=== PATIENT | female | born 1990 | race Caucasian/White ===

== ENCOUNTER 2016-08-20 16:11 | Emergency (ER) | payer OTHER ==
[2016-08-20] MEDS ORDERED: ACETAMINOPHEN 325 MG TAB As Ordered ONE (17:59)
[2016-08-20 18:26] LABS: BASO # 0.1 K/mm3 (0.0-0.2); BASO % 1.2 % (0.0-1.0); EOS # 0.2 K/mm3 (0.0-0.50); EOS % 1.6 % (0.0-3.0); LARGE UNSTAINED CELL # 0.2 K/mm3 (0.0-0.4); LARGE UNSTAINED CELL % 1.7 % (0.0-4.0); LYMPH # 4.3 K/mm3 (1.5-6.5); LYMPH % 39.9 % (24.0-44.0); MEAN CORPUSCULAR HEMOGLOBIN 30.5 pg (27.0-33.0); MEAN CORPUSCULAR VOLUME 89.7 fl (80.0-96.0); MONO # 0.5 K/mm3 (0.0-0.8); MONO % 4.5 % (0.0-5.0); NEUTROPHILS # 5.3 K/mm3 (1.8-7.7); PLATELET COUNT, AUTOMATED 364 k/mm3 (150-450); RED CELL DISTRIBUTION WIDTH 12.9 % (11.5-14.5); WHITE BLOOD COUNT 10.4 K/mm3 (4.0-10.0)
[2016-08-20 19:18] LABS: ANION GAP 10 MEQ/L (8-16); BLOOD UREA NITROGEN 12 MG/DL (7-18); CALCIUM LEVEL 9.5 MG/DL (8.5-10.1); CARBON DIOXIDE LEVEL 25 MEQ/L (21-32); CHLORIDE LEVEL 104 MEQ/L (98-107); CREATININE FOR GFR 0.77 MG/DL (0.55-1.02); GLOMERULAR FILTRATION RATE > 60.0 (>60); GLUCOSE, FASTING 93 MG/DL (70-105); HCG, SERUM QUANTITATIVE 14988 MIU/ML; POTASSIUM SERUM 3.9 MEQ/L (3.5-5.1); SODIUM LEVEL 139 MEQ/L (136-145)
--- NOTE | 2016-08-20 20:56 | EDDOCDS ---
Nurse's Notes [facility] Name: Leonardo Kiser Age: 26 yrs Sex: Female : 1990 Arrival Date: 08/20/2016 Time: 16:11 Bed I4 / M4 Private MD: HI Brice Diagnosis: Threatened Presentation: 08/20 16:15 Presenting complaint: Patient states: tomorrow she will be 6 weeks and about kcs 45 minutes ago - she started with heavy bleeding and cramping. Risk factors: The patient reports no loss of conciousness prior to arrival. This patient has not had a hysterectomy. This patient has not begun menopause. Adult Sepsis Screening: The patient does not have new or worsening altered mentation. Patient's respiratory rate is less than 22. Systolic blood pressure is greater than 100. Patient has a qSOFA score of 0- Negative Sepsis Screen. Suicide/Homicide risk assessment- the patient denies having any suicidal and/or homicidal ideations and does not present with any other emotional, behavioral or mental health complaints. Status: The patient is a dependent. Transition of care: patient was not received from another setting of care. 16:15 Acuity: MERCEDES Level 3 kcs 16:15 Method Of Arrival: Walkin/Carried/Asstd kcs 16:21 Presenting complaint: had 2 embryos transferred and only saw one on the last u/s. kcs Triage Assessment: 16:19 General: Appears uncomfortable, well developed, well nourished, well groomed, Behavior kcs is cooperative, pleasant. Pain: Location: lower abdomen - mostly on the right Pain currently is 4 out of 10 on a pain scale. HIV screening NA for this visit Offered previously. Neurological: Level of Consciousness is awake, alert. Respiratory: Airway is patent Respiratory effort is even, unlabored, Respiratory pattern is regular, symmetrical. : Reports vaginal bleeding that is. Derm: Skin is intact, is healthy with good turgor, Skin is dry, Skin is normal. 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 Progesterone oil injection 500 mg/10 ml - 1 ml daily 2. endometrin 100 mg 3 times daily 3. estradiol 2 mg Oral tab 3 times per day 4. Vitamin Oral 1 tab once daily 5. [place]-3 oral cap daily - PMHx: Kidney stones; UTI; - PSHx: none; - Social history: Smoking status: Patient states was never smoker of tobacco. No barriers to communication noted, The patient speaks fluent Lithuanian. - Family history: Not pertinent. - : The pt / caregiver states he / she is not on anticoagulants. Home medication list is obtained from the patient, pill bottles. - Exposure Risk Screening:: None identified. Screenin:20 Screening information is obtained from the patient. Fall risk: No risks identified. kr3 Assistance ADL's: requires no assistance with activities of daily living. Abuse/DV Screen: The patient / caregiver reports he/she is: not in a situation that causes fear, pain or injury. Nutritional screening: No deficits noted. Advance Directives: Currently, there is no health care proxy. home support is adequate. Assessment: 18:19 General: Appears initially was very upset and crying due to reason for being in ED, kr3 calmed quickly and patient explained symptoms.. Pain: Pain currently is 0 out of 10 on a pain scale. At worst was 5 out of 10 on a pain scale. Quality of pain is described as crampy. Neurological: Level of Consciousness is awake, alert. Respiratory: Respiratory effort is even, unlabored. : Reports vaginal bleeding that is spotty. Derm: Skin is normal. 20:54 Adult Sepsis Screening: The patient does not have new or worsening altered mentation. dsf Patient's respiratory rate is less than 22. Systolic blood pressure is greater than 100. Patient has a qSOFA score of 0- Negative Sepsis Screen. General: Appears in no apparent distress, Behavior is appropriate for age, cooperative. Pain: Location: right lower quadrant and left lower quadrant Pain currently is 3 out of 10 on a pain scale. Quality of pain is described as crampy. Neurological: Level of Consciousness is awake, alert. Cardiovascular: Capillary refill < 3 seconds. Respiratory: Airway is patent Respiratory effort is even, unlabored, Respiratory pattern is regular, symmetrical. Derm: Skin is pink, warm & dry. Vital Signs: 16:13 BP 149 / 88; Pulse 93; Resp 20; Temp 97.1; Pulse Ox 99% ; Weight 61.23 kg; Height 5 ft. cmb 0 in. (152.40 cm); Pain 4/10; 19:54 BP 120 / 76; Pulse 84; Resp 18; Temp 97.7; Pulse Ox 98% ; Pain 0/10; ajs 16:13 Body Mass Index 26.37 (61.23 kg, 152.40 cm) cmb Vitals: 16:13 Log In Time: August 20, 2016 at 16:08. cmb ED Course: 16:13 Patient visited by Mary Hutson. cmb 16:13 Babs [facility] is Private Physician. cmb 16:13 Patient moved to Waiting cmb 16:13 Patient moved to Pre RCE cmb 16:16 Triage Initiated kcs 16:59 Patient moved to Triage 1 kcs 17:15 Patient visited by Layla Leone RN. mk4 17:22 [facility] ck7 17:22 Galo Harrison MD is Attending Physician. ck7 17:22 Patient visited by Gallo Booth RPA-C. ck7 17:55 Patient visited by Gallo Booth RPA-C. ck7 17:55 Patient moved to I4 / M4 jrd 18:15 Hcg, Serum Quantitative Sent. dsf 18:15 Type & Screen Sent. dsf 18:15 Basic Metabolic Profile Sent. dsf 18:15 CBC with Diff Sent. dsf 18:18 Inserted saline lock: 20 gauge in right hand The patient tolerated the procedure well. kr3 18:21 The patient / caregiver is instructed regarding the plan of care and ED course. kr3 Accompanied by Family Member, Patient has correct armband on for positive identification. Placed in gown. Bed in low position. Call light in reach. 18:31 [facility] Payment Agreement was scanned into [employer] and attached to record. ks16 18:39 Patient visited by Gallo Booth RPA-C. ck7 18:54 Patient moved to Ultrasound am17 19:23 Patient moved to I4 / M4 am17 19:26 Patient visited by Gallo Booth RPA-C. ck7 19:38 Wet Prep Sent. dsf 19:38 GC & Chlamydia Amplification Sent. dsf 19:39 Patient visited by Brenda Barnett RN. dsf 19:39 Assist provider with pelvic exam: Set up pelvic tray. Specimens sent to lab. Performed dsf by Gallo REILLY Patient tolerated well. 19:54 Patient visited by Anastasia Hawley. ajs 20:42 Patient visited by Gallo Booth RPA-C. ck7 20:54 Discontinued lock intact, bleeding controlled, pressure dressing applied, No dsf redness/swelling at site. Administered Medications: 18:06 Drug: Acetaminophen 650 mg [acetaminophen 325 mg tablet (2 tabs)] Route: PO; dsf 18:15 Drug: NS 0.9% 1000 ml [sodium chloride 0.9 % injection solution] Route: IV; Rate: dsf bolus; Site: left hand; 20:54 Follow up: IV Status: Completed infusion; IV Intake: 1000ml dsf Intake: 20:54 IV: 1000.00ml; Total: 1000.00ml. dsf Order Results: Lab Order: CBC with Diff; SPEC'M 08/20/16 18:09 Test: WHITE BLOOD COUNT; Value: 10.4; Range: 4.0-10.0; Abnormal: Above high normal; Units: K/mm3; Status: F Test: RED BLOOD COUNT; Value: 4.84; Range: 4.00-5.40; Units: M/mm3; Status: F Test: HEMOGLOBIN; Value: 14.8; Range: 12.0-16.0; Units: g/dl; Status: F Test: HEMATOCRIT; Value: 43.4; Range: 36.0-47.0; Units: %; Status: F Test: MEAN CORPUSCULAR VOLUME; Value: 89.7; Range: 80.0-96.0; Units: fl; Status: F Test: MEAN CORPUSCULAR HEMOGLOBIN; Value: 30.5; Range: 27.0-33.0; Units: pg; Status: F Test: MEAN CORPUSCULAR HGB CONC; Value: 34.0; Range: 32.0-36.5; Units: g/dl; Status: F Test: RED CELL DISTRIBUTION WIDTH; Value: 12.9; Range: 11.5-14.5; Units: %; Status: F Test: PLATELET COUNT, AUTOMATED; Value: 364; Range: 150-450; Units: k/mm3; Status: F Test: NEUTROPHILS %; Value: 51.0; Range: 36.0-66.0; Units: %; Status: F Test: LYMPH %; Value: 39.9; Range: 24.0-44.0; Units: %; Status: F Test: MONO %; Value: 4.5; Range: 0.0-5.0; Units: %; Status: F Test: EOS %; Value: 1.6; Range: 0.0-3.0; Units: %; Status: F Test: BASO %; Value: 1.2; Range: 0.0-1.0; Abnormal: Above high normal; Units: %; Status: F Test: LARGE UNSTAINED CELL %; Value: 1.7; Range: 0.0-4.0; Units: %; Status: F Test: NEUTROPHILS #; Value: 5.3; Range: 1.8-7.7; Units: K/mm3; Status: F Test: LYMPH #; Value: 4.3; Range: 1.5-6.5; Units: K/mm3; Status: F Test: MONO #; Value: 0.5; Range: 0.0-0.8; Units: K/mm3; Status: F Test: EOS #; Value: 0.2; Range: 0.0-0.50; Units: K/mm3; Status: F Test: BASO #; Value: 0.1; Range: 0.0-0.2; Units: K/mm3; Status: F Test: LARGE UNSTAINED CELL #; Value: 0.2; Range: 0.0-0.4; Units: K/mm3; Status: F Lab Order: Basic Metabolic Profile; SPEC'M 08/20/16 18:09 Test: GLUCOSE, FASTING; Value: 93; Range: 70-105; Units: MG/DL; Status: F Test: BLOOD UREA NITROGEN; Value: 12; Range: 7-18; Units: MG/DL; Status: F Test: CREATININE FOR GFR; Value: 0.77; Range: 0.55-1.02; Units: MG/DL; Status: F Test: GLOMERULAR FILTRATION RATE; Value: > 60.0; Range: >60; Status: F Test: SODIUM LEVEL; Value: 139; Range: 136-145; Units: MEQ/L; Status: F Test: POTASSIUM SERUM; Value: 3.9; Range: 3.5-5.1; Units: MEQ/L; Status: F Test: CHLORIDE LEVEL; Value: 104; Range: 98-107; Units: MEQ/L; Status: F Test: CARBON DIOXIDE LEVEL; Value: 25; Range: 21-32; Units: MEQ/L; Status: F Test: ANION GAP; Value: 10; Range: 8-16; Units: MEQ/L; Status: F Test: CALCIUM LEVEL; Value: 9.5; Range: 8.5-10.1; Units: MG/DL; Status: F Test Note: ; Units are mL/min/1.73 m2 Chronic Kidney Disease Staging per NKF: Stage I & II GFR >=60 Normal to Mildly Decreased Stage III GFR 30-59 Moderately Decreased Stage IV GFR 15-29 Severely Decreased Stage V GFR <15 Very Little GFR Left ESRD GFR <15 on PARCEL POST CARRIER Lab Order: Type & Screen; SPEC'08/20/16 18:09 Test: BLOOD TYPE; Value: A POS; Status: F Test: AB SCREEN (INDIRECT CARITO)GEL; Value: NEGATIVE; Status: F Lab Order: Hcg, Serum Quantitative; SPEC'M 08/20/16 18:09 Test: HCG, SERUM QUANTITATIVE; Value: [id number]; Units: MIU/ML; Status: F Test Note: ; GESTATIONAL AGE APPROXIMATE HCG RANGE (MIU/ML) 0.2-1 WEEK 5-50 1-2 WEEKS 50-500 2-3 WEEKS 100-5,000 3-4 WEEKS 500-10,000 4-5 WEEKS 1,000-50,000 5-6 WEEKS 10,000-100,000 6-8 WEEKS 15,000-200,000 2-3 MONTHS 10,000-100,000 NON FEMALES LESS THAN 3.0 Patient samples may contain human heterophilic antibodies that could react with immunoassays to give falsely elevated or depressed results. This assay has been designed to minimize interference from heterophilic antibodies. Elevated hCG levels have also been associated with trophoblastic disease and nontrophoblastic neoplasms. The possibility of having these diseases should be considered before a diagnosis of is made. This test is not intended for use as a surrogate marker for aiding in the diagnosis or monitoring the treatment of cancer patients. Siemens [place] methodology. Lab Order: Wet Prep; SPEC'M 08/20/16 19:38 Test: WET PREP; Value: WET PREP RESULT; Status: F Test: WET PREP; Value: MANY RBC; Status: F Test: WET PREP; Value: FEW WBC; Status: F Test: WET PREP; Value: FEW EPITHELIAL CELLS PRESENT; Status: F Test: WET PREP; Value: FEW LONG RODS PRESENT; Status: F Test: WET PREP; Value: FEW SHORT RODS PRESENT; Status: F Outcome: 20:47 Discharge ordered by Provider. ck7 20:54 Discharge Assessment: Patient awake, alert and oriented x 3. No cognitive and/or dsf functional deficits noted. Patient verbalized understanding of disposition instructions. patient administered narcotics - no. The following High Risk Discharge criteria are identified: None. Discharged to home ambulatory, with significant other. Condition: stable. Discharge instructions given to patient, Instructed on discharge instructions, follow up and referral plans. Demonstrated understanding of instructions, Pt was receptive of discharge instructions/ teaching. Ultrasound Study completed. Property sent home with patient. 20:55 Patient left the ED. dsf Signatures: Lisa Spencer, RN RN Susana Millard RN RN mary kate3 Brenda Barnett RN RN dsf Anastasia Hawley [place] cmb Kwaczala, Christopher, RPA-C RPA-Cck7 Layla Leone RN RN manish4 Lucia Arellano am17 Pradeep Mascorro PCA LITIGATION SERVICES MANAGER Lashay Benjamin, Reg Reg [email or web address] MTDD
--- NOTE | 2016-08-20 20:56 | EDDOCDS ---
Physician Documentation [facility] [place] Name: Leonardo Kiser Age: 26 yrs Sex: Female : 1990 Arrival Date: 08/20/2016 Time: 16:11 Bed I4 / M4 Private MD: Babs [facility] Disposition: 08/20/16 20:47 Discharged to Home/Self Care. Impression: Threatened . - Condition is Stable. - Discharge Instructions: Threatened Miscarriage, Pelvic Rest. - Medication Reconciliation, Local Pharmacy Hours form. - Follow up: Private Physician; When: Tomorrow; Reason: Recheck today's complaints, Continuance of care. - Problem is new. - Symptoms have improved. - Notes: PLEASE FOLLOW UP WITH DR GOLD OR ANOTHER PROVIDER TOMORROW, RETURN TO THE ER IF SIGNIFICANT BLEEDING OR CONCERNING SYMPTOMS ARISE Historical: - Allergies: Bactrim (Hives); Ceclor (Hives); Naproxen (Swelling); - Home Meds: 1. Progesterone oil injection 500 mg/10 ml - 1 ml daily 2. endometrin 100 mg 3 times daily 3. estradiol 2 mg Oral tab 3 times per day 4. Vitamin Oral 1 tab once daily 5. [place]-3 oral cap daily - PMHx: Kidney stones; UTI; - PSHx: none; - Social history: Smoking status: Patient states was never smoker of tobacco. No barriers to communication noted, The patient speaks fluent British. - Family history: Not pertinent. - : The pt / caregiver states he / she is not on anticoagulants. Home medication list is obtained from the patient, pill bottles. - Exposure Risk Screening:: None identified. CREDIT MANAGER: 08/20 16:19 1, Full Term 0, Premature 0, 0, Living 0, LMP 07/12/2016 kcs Vital Signs: 16:13 BP 149 / 88; Pulse 93; Resp 20; Temp 97.1; Pulse Ox 99% ; Weight 61.23 kg / 134.99 lbs; cmb Height 5 ft. 0 in. (152.40 cm); Pain 4/10; 19:54 BP 120 / 76; Pulse 84; Resp 18; Temp 97.7; Pulse Ox 98% ; Pain 0/10; ajs 16:13 Body Mass Index 26.37 (61.23 kg, 152.40 cm) cmb MDM: 16:20 IV Saline Lock ordered. dt4 16:21 Type & Screen Ordered. EDMS 16:21 CBC with Diff Ordered. EDMS 16:21 Basic Metabolic Profile Ordered. EDMS 16:21 Hcg, Serum Quantitative Ordered. EDMS 17:52 NS 0.9% 1000 ml IV at bolus once ordered. ck7 17:52 Acetaminophen Tablet 650 mg PO once ordered. ck7 17:53 Set up pelvic ordered. ck7 17:53 US 1st trimester Ordered. EDMS 17:54 GC & Chlamydia Amplification Ordered. EDMS 17:54 Wet Prep Ordered. EDMS 17:57 ED course: PT UPSET THAT SHE WAITED TO BE SEEN, ALSO UNHAPPY THAT SHE WAS ADVISED NOT ck7 TO USE HER OWN PERSONAL MEDICATION AT [address] GOLD AT [facility]. PT HAD EMBRO TRANSFER ON 08/03/16, ULTRASOUND SHOWED POSSIBLE SINGLE , TODAY STARTED WITH BLEEDING, HAS BEEN HAVING CRAMPING. PT STATES SHE COULD BE LOOSING AND NO ONE IS DOING ANYTHING ABOUT IT. ADVISED THIS POST OFFICE MARKUP CLERK WOULD ORDER IMAGING AND INTERNAL EXAM, ANOTHER POST OFFICE MARKUP CLERK HAD ALREADY ORDERED LABS. PT STILL CONCERNED THAT SHE COULD BE LOOSING HER , ADVISED IF HER BODY WAS TERMINATING THE THAT NO MEDICATION COULD STOP THAT. PT AND S.O. STILL UNHAPPY, APPROPRIATE LABS AND IMAGING ORDERED, WILL CONTACT AUTO MECHANIC FOR [facility] AND VOICE PATIENTS CONCERNS AND SEEK RECOMMENDATIONS. 18:31 Financial registration complete. ks16 18:31 [facility] Payment Agreement was scanned into [employer] and attached to record. ks16 18:39 Physician consultation: Dr. DR ORTIZ was contacted at 18:20, regarding patient's ck7 condition, DR GOLD CONSULTED REGARDING NEED AND POSSIBLE ADMINISTRATION OF FERTILITY MEDICATIONS WHILE HAVING CRAMPING AND BLEEDING. ADVISED THAT PATIENT WAS ONLY INITIALLY EVALUATED, HAS NOT HAD LABS, IMAGING OR INTERNAL EXAM. DR GOLD RECOMMENDS PROGESTERONE INJECTION. ADVISED TO COMPLETE WORK UP AND CALL BACK IF NEEDED. 19:07 TRANSVAGINAL US Ordered. EDMS 19:30 CBC with Diff Reviewed. ck7 19:30 Basic Metabolic Profile Reviewed. ck7 19:30 Type & Screen Reviewed. ck7 19:30 Hcg, Serum Quantitative Reviewed. ck7 20:03 Wet Prep Reviewed. ck7 Administered Medications: 18:06 Drug: Acetaminophen 650 mg [acetaminophen 325 mg tablet (2 tabs)] Route: PO; dsf 18:15 Drug: NS 0.9% 1000 ml [sodium chloride 0.9 % injection solution] Route: IV; Rate: dsf bolus; Site: left hand; 20:54 Follow up: IV Status: Completed infusion; IV Intake: 1000ml dsf Signatures: Dispatcher [employer] Lisa Hammer RN RN kcs Fuller, Desiree, RN RN dsf Gallo Booth RPA-C RPA-Cck7 Earnestine Almaraz PA-C PATammy dt4 Lashay Newsome, Reg Reg ks16 The chart was reviewed and I authenticate all verbal orders and agree with the evaluation and treatment provided.Attachments: 18:31 [facility] Payment Agreement [email or web address] MTDD
--- NOTE | 2016-08-21 10:18 | REP ---
Clinical: Positive with vaginal bleeding. Technique: Transabdominal and transvaginal first trimester obstetrical ultrasound with color Doppler evaluation of the maternal ovaries and fetus. Findings: Anteverted uterus measures approximately 8.1 x 4.1 x 6.1 cm. Single live early intrauterine identified. Gestational sac with yolk sac and pole noted. CRL of 2 mm corresponds to 5 weeks 5 days gestational age with estimated date of delivery 04/17/2017. heart rate equals 116 beats per minute. A small amount of complex likely hemorrhagic debris is noted within the endometrial canal which correlates to the patient's history of vaginal bleeding. Impression: 1. Small amount of hemorrhagic debris noted in the endocervical canal. 2. Single live intrauterine measuring at 5 weeks 5 days gestational age. Complete anatomical assessment should be performed at 19-20 weeks. Signed by Bayron Fischer MD 08/21/2016 10:10 A
--- NOTE | 2016-08-22 21:56 | EDDOCDS ---
Nurse's Notes [facility] Name: Leonardo Kiser Age: 26 yrs Sex: Female : 1990 Arrival Date: 08/20/2016 Time: 16:11 Bed I4 / M4 Private MD: HI Brice Diagnosis: Threatened Presentation: 08/20 16:15 Presenting complaint: Patient states: tomorrow she will be 6 weeks and about kcs 45 minutes ago - she started with heavy bleeding and cramping. Risk factors: The patient reports no loss of conciousness prior to arrival. This patient has not had a hysterectomy. This patient has not begun menopause. Adult Sepsis Screening: The patient does not have new or worsening altered mentation. Patient's respiratory rate is less than 22. Systolic blood pressure is greater than 100. Patient has a qSOFA score of 0- Negative Sepsis Screen. Suicide/Homicide risk assessment- the patient denies having any suicidal and/or homicidal ideations and does not present with any other emotional, behavioral or mental health complaints. Status: The patient is a dependent. Transition of care: patient was not received from another setting of care. 16:15 Acuity: MERCEDES Level 3 kcs 16:15 Method Of Arrival: Walkin/Carried/Asstd kcs 16:21 Presenting complaint: had 2 embryos transferred and only saw one on the last u/s. kcs Triage Assessment: 16:19 General: Appears uncomfortable, well developed, well nourished, well groomed, Behavior kcs is cooperative, pleasant. Pain: Location: lower abdomen - mostly on the right Pain currently is 4 out of 10 on a pain scale. HIV screening NA for this visit Offered previously. Neurological: Level of Consciousness is awake, alert. Respiratory: Airway is patent Respiratory effort is even, unlabored, Respiratory pattern is regular, symmetrical. : Reports vaginal bleeding that is. Derm: Skin is intact, is healthy with good turgor, Skin is dry, Skin is normal. 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 Progesterone oil injection 500 mg/10 ml - 1 ml daily 2. endometrin 100 mg 3 times daily 3. estradiol 2 mg Oral tab 3 times per day 4. Vitamin Oral 1 tab once daily 5. [place]-3 oral cap daily - PMHx: Kidney stones; UTI; - PSHx: none; - Social history: Smoking status: Patient states was never smoker of tobacco. No barriers to communication noted, The patient speaks fluent Upper Sorbian. - Family history: Not pertinent. - : The pt / caregiver states he / she is not on anticoagulants. Home medication list is obtained from the patient, pill bottles. - Exposure Risk Screening:: None identified. Screenin:20 Screening information is obtained from the patient. Fall risk: No risks identified. kr3 Assistance ADL's: requires no assistance with activities of daily living. Abuse/DV Screen: The patient / caregiver reports he/she is: not in a situation that causes fear, pain or injury. Nutritional screening: No deficits noted. Advance Directives: Currently, there is no health care proxy. home support is adequate. Assessment: 18:19 General: Appears initially was very upset and crying due to reason for being in ED, kr3 calmed quickly and patient explained symptoms.. Pain: Pain currently is 0 out of 10 on a pain scale. At worst was 5 out of 10 on a pain scale. Quality of pain is described as crampy. Neurological: Level of Consciousness is awake, alert. Respiratory: Respiratory effort is even, unlabored. : Reports vaginal bleeding that is spotty. Derm: Skin is normal. 20:54 Adult Sepsis Screening: The patient does not have new or worsening altered mentation. dsf Patient's respiratory rate is less than 22. Systolic blood pressure is greater than 100. Patient has a qSOFA score of 0- Negative Sepsis Screen. General: Appears in no apparent distress, Behavior is appropriate for age, cooperative. Pain: Location: right lower quadrant and left lower quadrant Pain currently is 3 out of 10 on a pain scale. Quality of pain is described as crampy. Neurological: Level of Consciousness is awake, alert. Cardiovascular: Capillary refill < 3 seconds. Respiratory: Airway is patent Respiratory effort is even, unlabored, Respiratory pattern is regular, symmetrical. Derm: Skin is pink, warm & dry. Vital Signs: 16:13 BP 149 / 88; Pulse 93; Resp 20; Temp 97.1; Pulse Ox 99% ; Weight 61.23 kg; Height 5 ft. cmb 0 in. (152.40 cm); Pain 4/10; 19:54 BP 120 / 76; Pulse 84; Resp 18; Temp 97.7; Pulse Ox 98% ; Pain 0/10; ajs 16:13 Body Mass Index 26.37 (61.23 kg, 152.40 cm) cmb Vitals: 16:13 Log In Time: August 20, 2016 at 16:08. cmb ED Course: 16:13 Patient visited by Mary Hutson. cmb 16:13 [place] [facility]. cmb 16:13 Patient moved to Waiting cmb 16:13 Patient moved to Pre RCE cmb 16:16 Triage Initiated kcs 16:59 Patient moved to Triage 1 kcs 17:15 Patient visited by Layla Leone RN. mk4 17:22 [facility] ck7 17:22 Galo Harrison MD is Attending Physician. ck7 17:22 Patient visited by Gallo Booth RPA-C. ck7 17:55 Patient visited by Gallo Booth RPA-C. ck7 17:55 Patient moved to I4 / M4 jrd 18:15 Hcg, Serum Quantitative Sent. dsf 18:15 Type & Screen Sent. dsf 18:15 Basic Metabolic Profile Sent. dsf 18:15 CBC with Diff Sent. dsf 18:18 Inserted saline lock: 20 gauge in right hand The patient tolerated the procedure well. kr3 18:21 The patient / caregiver is instructed regarding the plan of care and ED course. kr3 Accompanied by Family Member, Patient has correct armband on for positive identification. Placed in gown. Bed in low position. Call light in reach. 18:31 [facility] Payment Agreement was scanned into [employer] and attached to record. ks16 18:39 Patient visited by Gallo Booth RPA-C. ck7 18:54 Patient moved to Ultrasound am17 19:23 Patient moved to I4 / M4 am17 19:26 Patient visited by Gallo Booth RPA-C. ck7 19:38 Wet Prep Sent. dsf 19:38 GC & Chlamydia Amplification Sent. dsf 19:39 Patient visited by Brenda Barnett RN. dsf 19:39 Assist provider with pelvic exam: Set up pelvic tray. Specimens sent to lab. Performed dsf by Gallo REILLY Patient tolerated well. 19:54 Patient visited by Anastasia Hawley. ajs 20:42 Patient visited by Gallo Booth RPA-C. ck7 20:54 Discontinued lock intact, bleeding controlled, pressure dressing applied, No dsf redness/swelling at site. 08/21 09:50 T-Sheet-- Draft Copy was scanned into [employer] and attached to record. gb 10:38 US 1st trimester Returned. EDMS Administered Medications: 08/20 18:06 Drug: Acetaminophen 650 mg [acetaminophen 325 mg tablet (2 tabs)] Route: PO; dsf 18:15 Drug: NS 0.9% 1000 ml [sodium chloride 0.9 % injection solution] Route: IV; Rate: dsf bolus; Site: left hand; 20:54 Follow up: IV Status: Completed infusion; IV Intake: 1000ml dsf Intake: 20:54 IV: 1000.00ml; Total: 1000.00ml. dsf Order Results: Lab Order: CBC with Diff; SPEC'M 08/20/16 18:09 Test: WHITE BLOOD COUNT; Value: 10.4; Range: 4.0-10.0; Abnormal: Above high normal; Units: K/mm3; Status: F Test: RED BLOOD COUNT; Value: 4.84; Range: 4.00-5.40; Units: M/mm3; Status: F Test: HEMOGLOBIN; Value: 14.8; Range: 12.0-16.0; Units: g/dl; Status: F Test: HEMATOCRIT; Value: 43.4; Range: 36.0-47.0; Units: %; Status: F Test: MEAN CORPUSCULAR VOLUME; Value: 89.7; Range: 80.0-96.0; Units: fl; Status: F Test: MEAN CORPUSCULAR HEMOGLOBIN; Value: 30.5; Range: 27.0-33.0; Units: pg; Status: F Test: MEAN CORPUSCULAR HGB CONC; Value: 34.0; Range: 32.0-36.5; Units: g/dl; Status: F Test: RED CELL DISTRIBUTION WIDTH; Value: 12.9; Range: 11.5-14.5; Units: %; Status: F Test: PLATELET COUNT, AUTOMATED; Value: 364; Range: 150-450; Units: k/mm3; Status: F Test: NEUTROPHILS %; Value: 51.0; Range: 36.0-66.0; Units: %; Status: F Test: LYMPH %; Value: 39.9; Range: 24.0-44.0; Units: %; Status: F Test: MONO %; Value: 4.5; Range: 0.0-5.0; Units: %; Status: F Test: EOS %; Value: 1.6; Range: 0.0-3.0; Units: %; Status: F Test: BASO %; Value: 1.2; Range: 0.0-1.0; Abnormal: Above high normal; Units: %; Status: F Test: LARGE UNSTAINED CELL %; Value: 1.7; Range: 0.0-4.0; Units: %; Status: F Test: NEUTROPHILS #; Value: 5.3; Range: 1.8-7.7; Units: K/mm3; Status: F Test: LYMPH #; Value: 4.3; Range: 1.5-6.5; Units: K/mm3; Status: F Test: MONO #; Value: 0.5; Range: 0.0-0.8; Units: K/mm3; Status: F Test: EOS #; Value: 0.2; Range: 0.0-0.50; Units: K/mm3; Status: F Test: BASO #; Value: 0.1; Range: 0.0-0.2; Units: K/mm3; Status: F Test: LARGE UNSTAINED CELL #; Value: 0.2; Range: 0.0-0.4; Units: K/mm3; Status: F Lab Order: Basic Metabolic Profile; SPEC'M 08/20/16 18:09 Test: GLUCOSE, FASTING; Value: 93; Range: 70-105; Units: MG/DL; Status: F Test: BLOOD UREA NITROGEN; Value: 12; Range: 7-18; Units: MG/DL; Status: F Test: CREATININE FOR GFR; Value: 0.77; Range: 0.55-1.02; Units: MG/DL; Status: F Test: GLOMERULAR FILTRATION RATE; Value: > 60.0; Range: >60; Status: F Test: SODIUM LEVEL; Value: 139; Range: 136-145; Units: MEQ/L; Status: F Test: POTASSIUM SERUM; Value: 3.9; Range: 3.5-5.1; Units: MEQ/L; Status: F Test: CHLORIDE LEVEL; Value: 104; Range: 98-107; Units: MEQ/L; Status: F Test: CARBON DIOXIDE LEVEL; Value: 25; Range: 21-32; Units: MEQ/L; Status: F Test: ANION GAP; Value: 10; Range: 8-16; Units: MEQ/L; Status: F Test: CALCIUM LEVEL; Value: 9.5; Range: 8.5-10.1; Units: MG/DL; Status: F Test Note: ; Units are mL/min/1.73 m2 Chronic Kidney Disease Staging per NKF: Stage I & II GFR >=60 Normal to Mildly Decreased Stage III GFR 30-59 Moderately Decreased Stage IV GFR 15-29 Severely Decreased Stage V GFR <15 Very Little GFR Left ESRD GFR <15 on 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 Lab Order: Type & Screen; SPEC'M 08/20/16 18:09 Test: BLOOD TYPE; Value: A POS; Status: F Test: AB SCREEN (INDIRECT CARITO)GEL; Value: NEGATIVE; Status: F Lab Order: Hcg, Serum Quantitative; SPEC'M 08/20/16 18:09 Test: HCG, SERUM QUANTITATIVE; Value: 13021; Units: MIU/ML; Status: F Test Note: ; GESTATIONAL AGE APPROXIMATE HCG RANGE (MIU/ML) 0.2-1 WEEK 5-50 1-2 WEEKS 50-500 2-3 WEEKS 100-5,000 3-4 WEEKS 500-10,000 4-5 WEEKS 1,000-50,000 5-6 WEEKS 10,000-100,000 6-8 WEEKS 15,000-200,000 2-3 MONTHS 10,000-100,000 NON FEMALES LESS THAN 3.0 Patient samples may contain human heterophilic antibodies that could react with immunoassays to give falsely elevated or depressed results. This assay has been designed to minimize interference from heterophilic antibodies. Elevated hCG levels have also been associated with trophoblastic disease and nontrophoblastic neoplasms. The possibility of having these diseases should be considered before a diagnosis of is made. This test is not intended for use as a surrogate marker for aiding in the diagnosis or monitoring the treatment of cancer patients. [employer] methodology. Lab Order: GC & Chlamydia Amplification; SPEC'M 08/20/16 19:38 Test: CHLAMYDIA DNA AMPLIFICATION; Value: NEGATIVE; Range: NEGATIVE; Status: F Test: GC DNA AMPLIFICATION; Value: NEGATIVE; Range: NEGATIVE; Status: F Lab Order: Wet Prep; SPEC'M 08/20/16 19:38 Test: WET PREP; Value: WET PREP RESULT; Status: F Test: WET PREP; Value: MANY RBC; Status: F Test: WET PREP; Value: FEW WBC; Status: F Test: WET PREP; Value: FEW EPITHELIAL CELLS PRESENT; Status: F Test: WET PREP; Value: FEW LONG RODS PRESENT; Status: F Test: WET PREP; Value: FEW SHORT RODS PRESENT; Status: F Radiology Order: US 1st trimester Test: US 1st trimester REASON FOR EXAMINATION: Bleeding; Clinical: Positive with vaginal bleeding.; ; Technique: Transabdominal and transvaginal first trimester obstetrical; ultrasound with color Doppler evaluation of the maternal ovaries and fetus.; ; Findings:; Anteverted uterus measures approximately 8.1 x 4.1 x 6.1 cm. Single live early; intrauterine identified. Gestational sac with yolk sac and pole; noted. CRL of 2 mm corresponds to 5 weeks 5 days gestational age with estimated; date of delivery 04/17/2017. heart rate equals 116 beats per minute. A; small amount of complex likely hemorrhagic debris is noted within the endometrial; canal which correlates to the patient's history of vaginal bleeding.; ; Impression:; 1. Small amount of hemorrhagic debris noted in the endocervical canal.; 2. Single live intrauterine measuring at 5 weeks 5 days gestational; age. Complete anatomical assessment should be performed at 19-20 weeks.; ; ; Signed by; Bayron Fischer MD 08/21/2016 10:10 A; Outcome: 20:47 Discharge ordered by Provider. ck7 20:54 Discharge Assessment: Patient awake, alert and oriented x 3. No cognitive and/or dsf functional deficits noted. Patient verbalized understanding of disposition instructions. patient administered narcotics - no. The following High Risk Discharge criteria are identified: None. Discharged to home ambulatory, with significant other. Condition: stable. Discharge instructions given to patient, Instructed on discharge instructions, follow up and referral plans. Demonstrated understanding of instructions, Pt was receptive of discharge instructions/ teaching. Ultrasound Study completed. Property sent home with patient. 20:55 Patient left the ED. dsf Signatures: Dispatcher [employer] EDLisa Retana, RN RN [facility] Keli Zendejas, Reg Reg gb Susana WangRN RN kr3 Brenda BarnettRN RN dsf Anastasia Hawley [place] cmb Kwaczala, Christopher, RPA-C RPA-Cck7 Layla Leone, RN RN manish4 Lucia Arellano am17 Pradeep Mascorro, TAMMY MARKETING ADMIN Lashay Benjamin, Reg Reg ks16 Chart Complete MTDGem
--- NOTE | 2016-08-22 21:56 | EDDOCDS ---
Physician Documentation [facility] Name: Leonardo Kiser Age: 26 yrs Sex: Female : 1990 Arrival Date: 08/20/2016 Time: 16:11 Bed I4 / M4 Private MD: Babs [facility] [place] Disposition: 08/20/16 20:47 Discharged to Home/Self Care. Impression: Threatened . - Condition is Stable. - Discharge Instructions: Threatened Miscarriage, Pelvic Rest. - Medication Reconciliation, Local Pharmacy Hours form. - Follow up: Private Physician; When: Tomorrow; Reason: Recheck today's complaints, Continuance of care. - Problem is new. - Symptoms have improved. - Notes: PLEASE FOLLOW UP WITH DR GOLD OR ANOTHER PROVIDER TOMORROW, RETURN TO THE ER IF SIGNIFICANT BLEEDING OR CONCERNING SYMPTOMS ARISE Historical: - Allergies: Bactrim (Hives); Ceclor (Hives); Naproxen (Swelling); - Home Meds: 1. Progesterone oil injection 500 mg/10 ml - 1 ml daily 2. endometrin 100 mg 3 times daily 3. estradiol 2 mg Oral tab 3 times per day 4. Vitamin Oral 1 tab once daily 5. [place]-3 oral cap daily - PMHx: Kidney stones; UTI; - PSHx: none; - Social history: Smoking status: Patient states was never smoker of tobacco. No barriers to communication noted, The patient speaks fluent [place] Citizen. - Family history: Not pertinent. - : The pt / caregiver states he / she is not on anticoagulants. Home medication list is obtained from the patient, pill bottles. - Exposure Risk Screening:: None identified. 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 0 in. (152.40 cm); Pain 4/10; 19:54 BP 120 / 76; Pulse 84; Resp 18; Temp 97.7; Pulse Ox 98% ; Pain 0/10; ajs 16:13 Body Mass Index 26.37 (61.23 kg, 152.40 cm) cmb MDM: 16:20 IV Saline Lock ordered. dt4 16:21 Type & Screen Ordered. EDMS 16:21 CBC with Diff Ordered. EDMS 16:21 Basic Metabolic Profile Ordered. EDMS 16:21 Hcg, Serum Quantitative Ordered. EDMS 17:52 NS 0.9% 1000 ml IV at bolus once ordered. ck7 17:52 Acetaminophen Tablet 650 mg PO once ordered. ck7 17:53 Set up pelvic ordered. ck7 17:53 US 1st trimester Ordered. EDMS 17:54 GC & Chlamydia Amplification Ordered. EDMS 17:54 Wet Prep Ordered. EDMS 17:57 ED course: PT UPSET THAT SHE WAITED TO BE SEEN, ALSO UNHAPPY THAT SHE WAS ADVISED NOT ck7 TO USE HER OWN PERSONAL MEDICATION AT [address] GOLD AT [facility]. PT HAD EMBRO TRANSFER ON 08/03/16, ULTRASOUND SHOWED POSSIBLE SINGLE , TODAY STARTED WITH BLEEDING, HAS BEEN HAVING CRAMPING. PT STATES SHE COULD BE LOOSING AND NO ONE IS DOING ANYTHING ABOUT IT. ADVISED THIS GENERAL DOC WOULD ORDER IMAGING AND INTERNAL EXAM, ANOTHER GENERAL DOC HAD ALREADY ORDERED LABS. PT STILL CONCERNED THAT SHE COULD BE LOOSING HER , ADVISED IF HER BODY WAS TERMINATING THE THAT NO MEDICATION COULD STOP THAT. PT AND S.O. STILL UNHAPPY, APPROPRIATE LABS AND IMAGING ORDERED, WILL CONTACT VORTEX OPERATOR FOR [facility] AND VOICE PATIENTS CONCERNS AND SEEK RECOMMENDATIONS. 18:31 Financial registration complete. [email or web address] 18:31 [facility] Payment Agreement was scanned into [employer] and attached to record. ks16 18:39 Physician consultation: Dr. DR ORTIZ was contacted at 18:20, regarding patient's ck7 condition, DR GOLD CONSULTED REGARDING NEED AND POSSIBLE ADMINISTRATION OF FERTILITY MEDICATIONS WHILE HAVING CRAMPING AND BLEEDING. ADVISED THAT PATIENT WAS ONLY INITIALLY EVALUATED, HAS NOT HAD LABS, IMAGING OR INTERNAL EXAM. DR GOLD RECOMMENDS PROGESTERONE INJECTION. ADVISED TO COMPLETE WORK UP AND CALL BACK IF NEEDED. 19:07 TRANSVAGINAL US Ordered. EDMS 19:30 CBC with Diff Reviewed. ck7 19:30 Basic Metabolic Profile Reviewed. ck7 19:30 Type & Screen Reviewed. ck7 19:30 Hcg, Serum Quantitative Reviewed. ck7 20:03 Wet Prep Reviewed. ck7 08/21 09:50 T-Sheet-- Draft Copy was scanned into [employer] and attached to record. gb Administered Medications: 08/20 18:06 Drug: Acetaminophen 650 mg [acetaminophen 325 mg tablet (2 tabs)] Route: PO; dsf 18:15 Drug: NS 0.9% 1000 ml [sodium chloride 0.9 % injection solution] Route: IV; Rate: dsf bolus; Site: left hand; 20:54 Follow up: IV Status: Completed infusion; IV Intake: 1000ml dsf Signatures: Dispatcher [employer] EDLisa Retana RN RN [facility] Keli Zendejas, Reg Reg gb Brenda Barnett RN RN dsf Gallo Booth RPA-C RPA-Cck7 Earnestine Almaraz PA-C PATammy dt4 Lashay Newsome, Reg Reg ks16 The chart was reviewed and I authenticate all verbal orders and agree with the evaluation and treatment provided.Attachments: 18:31 [facility] Payment Agreement [email or web address] 08/21 09:50 T-Sheet-- Draft Copy Chart Complete MTDD
--- NOTE | 2016-08-22 21:56 | EDDOCDS ---
Physician Documentation [facility] Name: Leonardo Kiser Age: 26 yrs Sex: Female : 1990 Arrival Date: 08/20/2016 Time: 16:11 Bed I4 / M4 Private MD: [place] [facility] [place] Disposition: 08/20/16 20:47 Discharged to Home/Self Care. Impression: Threatened . - Condition is Stable. - Discharge Instructions: Threatened Miscarriage, Pelvic Rest. - Medication Reconciliation, Local Pharmacy Hours form. - Follow up: Private Physician; When: Tomorrow; Reason: Recheck today's complaints, Continuance of care. - Problem is new. - Symptoms have improved. - Notes: PLEASE FOLLOW UP WITH DR GOLD OR ANOTHER PROVIDER TOMORROW, RETURN TO THE ER IF SIGNIFICANT BLEEDING OR CONCERNING SYMPTOMS ARISE Historical: - Allergies: Bactrim (Hives); Ceclor (Hives); Naproxen (Swelling); - Home Meds: 1. Progesterone oil injection 500 mg/10 ml - 1 ml daily 2. endometrin 100 mg 3 times daily 3. estradiol 2 mg Oral tab 3 times per day 4. Vitamin Oral 1 tab once daily 5. [place]-3 oral cap daily - PMHx: Kidney stones; UTI; - PSHx: none; - Social history: Smoking status: Patient states was never smoker of tobacco. No barriers to communication noted, The patient speaks fluent [place]. - Family history: Not pertinent. - : The pt / caregiver states he / she is not on anticoagulants. Home medication list is obtained from the patient, pill bottles. - Exposure Risk Screening:: None identified. 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 0 in. (152.40 cm); Pain 4/10; 19:54 BP 120 / 76; Pulse 84; Resp 18; Temp 97.7; Pulse Ox 98% ; Pain 0/10; ajs 16:13 Body Mass Index 26.37 (61.23 kg, 152.40 cm) cmb MDM: 16:20 IV Saline Lock ordered. dt4 16:21 Type & Screen Ordered. EDMS 16:21 CBC with Diff Ordered. EDMS 16:21 Basic Metabolic Profile Ordered. EDMS 16:21 Hcg, Serum Quantitative Ordered. EDMS 17:52 NS 0.9% 1000 ml IV at bolus once ordered. ck7 17:52 Acetaminophen Tablet 650 mg PO once ordered. ck7 17:53 Set up pelvic ordered. ck7 17:53 US 1st trimester Ordered. EDMS 17:54 GC & Chlamydia Amplification Ordered. EDMS 17:54 Wet Prep Ordered. EDMS 17:57 ED course: PT UPSET THAT SHE WAITED TO BE SEEN, ALSO UNHAPPY THAT SHE WAS ADVISED NOT ck7 TO USE HER OWN PERSONAL MEDICATION AT [address] GOLD AT [facility]. PT HAD EMBRO TRANSFER ON 08/03/16, ULTRASOUND SHOWED POSSIBLE SINGLE , TODAY STARTED WITH BLEEDING, HAS BEEN HAVING CRAMPING. PT STATES SHE COULD BE LOOSING AND NO ONE IS DOING ANYTHING ABOUT IT. ADVISED THIS SENIOR SOFTWARE TEST ENGINEER WOULD ORDER IMAGING AND INTERNAL EXAM, ANOTHER SENIOR SOFTWARE TEST ENGINEER HAD ALREADY ORDERED LABS. PT STILL CONCERNED THAT SHE COULD BE LOOSING HER , ADVISED IF HER BODY WAS TERMINATING THE THAT NO MEDICATION COULD STOP THAT. PT AND S.O. STILL UNHAPPY, APPROPRIATE LABS AND IMAGING ORDERED, WILL CONTACT DIRECTOR PROSPECT FOR [facility] AND VOICE PATIENTS CONCERNS AND SEEK RECOMMENDATIONS. 18:31 Financial registration complete. [email or web address] 18:31 [facility] Payment Agreement was scanned into [employer] and attached to record. ks16 18:39 Physician consultation: Dr. DR ORTIZ was contacted at 18:20, regarding patient's ck7 condition, DR GOLD CONSULTED REGARDING NEED AND POSSIBLE ADMINISTRATION OF FERTILITY MEDICATIONS WHILE HAVING CRAMPING AND BLEEDING. ADVISED THAT PATIENT WAS ONLY INITIALLY EVALUATED, HAS NOT HAD LABS, IMAGING OR INTERNAL EXAM. DR GOLD RECOMMENDS PROGESTERONE INJECTION. ADVISED TO COMPLETE WORK UP AND CALL BACK IF NEEDED. 19:07 TRANSVAGINAL US Ordered. EDMS 19:30 CBC with Diff Reviewed. ck7 19:30 Basic Metabolic Profile Reviewed. ck7 19:30 Type & Screen Reviewed. ck7 19:30 Hcg, Serum Quantitative Reviewed. ck7 20:03 Wet Prep Reviewed. ck7 08/21 09:50 T-Sheet-- Draft Copy was scanned into [employer]jee and attached to record. gb Administered Medications: 08/20 18:06 Drug: Acetaminophen 650 mg [acetaminophen 325 mg tablet (2 tabs)] Route: PO; dsf 18:15 Drug: NS 0.9% 1000 ml [sodium chloride 0.9 % injection solution] Route: IV; Rate: dsf bolus; Site: left hand; 20:54 Follow up: IV Status: Completed infusion; IV Intake: 1000ml dsf Signatures: Dispatcher [employer] EDLisa Retana RN RN [facility] Keli Zendejas, Reg Reg gb Brenda Barnett RN RN dsf Gallo Booth RPA-C RPA-Cck7 Earnestine Almaraz PA-C PATammy dt4 Lashay Newsome, Reg Reg [email or web address] The chart was reviewed and I authenticate all verbal orders and agree with the evaluation and treatment provided.Attachments: 18:31 [facility] Payment Agreement [email or web address] 08/21 09:50 T-Sheet-- Draft Copy Chart Complete MTDD
== END 2016-08-20 20:55 | disposition home or self-care (01) ==
LOC: M ED 16:11
DX: O20.0 Threatened abortion (principal); Z87.440 Personal history of urinary (tract) infections; Z87.442 Personal history of urinary calculi; Z79.899 Other long term (current) drug therapy; Z88.1 Allergy status to other antibiotic agents; Z88.6 Allergy status to analgesic agent

== ENCOUNTER 2017-04-03 22:15 | Outpatient (CLI) | payer OTHER ==
[~2017-04-03] VITALS: Ht 152.4 cm; Wt 86.0 kg
[2017-04-03 22:28] VITALS: BP 114/70
== END 2017-04-03 23:10 | disposition home or self-care (01) ==
LOC: M LDO 22:15
PROVIDERS: ATTEND Obstetrics & Gynecology
DX: O36.8130 Decreased fetal movements, third trimester, not applicable or unspecified (principal); Z3A.37 37 weeks gestation of pregnancy

== ENCOUNTER 2017-04-24 08:45 | Inpatient (IN) | payer OTHER ==
[2017-04-24] VITALS (7 sets, daily range): BP systolic 111–138; BP diastolic 64–85
[~2017-04-24] VITALS: Ht 152.4 cm; Wt 91.3 kg
[2017-04-24] MEDS ORDERED: RANI15TA PO (09:14)
[2017-04-24] MEDS ORDERED: PRENTAB9 PO (09:14)
[2017-04-24] MEDS ORDERED: LR 1,000 ML IV SCH (09:44)
[2017-04-24] MEDS ORDERED: OXYTOCIN DRIP 30 UNITS in APPROPRIATE DILUENT 1 EA IV SCH ×2 (09:45→23:26)
[2017-04-24 10:07] LABS: MEAN CORPUSCULAR HEMOGLOBIN 32.5 pg (27.0-33.0); MEAN CORPUSCULAR HGB CONC 36.3 g/dl (32.0-36.5); MEAN CORPUSCULAR VOLUME 89.6 fl (80.0-96.0); RED CELL DISTRIBUTION WIDTH 12.6 % (11.5-14.5); WHITE BLOOD COUNT 7.5 K/mm3 (4.0-10.0)
[2017-04-24] MEDS ORDERED: FENTANYL 2MCG/ML ROPIVACAINE 0.2% IN 0.9% NACL 200ML IVBAG As Ordered ONE (16:18)
[2017-04-24] MEDS ORDERED: REFRIGERATOR IV KEYS XX PRN (20:45)
[2017-04-24] MEDS ORDERED: diphenhydrAMINE INJ 50MG/ML VIAL (J1200) IV PRN (20:45)
[2017-04-24] MEDS ORDERED: ONDANSETRON 4MG/2ML VIAL (J2405) IV PRN ×2 (20:45→23:30)
[2017-04-24] MEDS ORDERED: EPIDURAL/PCA KEYS XX PRN (20:45)
[2017-04-24] MEDS ORDERED: ePHEDrine SULFATE 25 MG/5 ML(5MG/ML) SYRINGE IV PRN (20:45)
[2017-04-24] MEDS ORDERED: FENTANYL/ROPIVACAINE/NACL BAG 200 ML EPIDURAL SCH (20:45)
[2017-04-24] MEDS ORDERED: NALOXONE INJ 0.4 MG/1 ML VIAL (J2310) IV PRN (20:45)
[2017-04-24] MEDS ORDERED: EPIDURAL COMMENT XX SCH (20:45)
[2017-04-24] MEDS ORDERED: DOCUSATE SODIUM 100 MG CAP PO PRN (23:30)
[2017-04-24] MEDS ORDERED: MOM 30ML SUSPENSION UDC PO PRN (23:30)
[2017-04-24] MEDS ORDERED: MEASLES,MUMPS,RUBELLA VACCINE INJ (MMR-II) (90707) SC SCH (23:30)
[2017-04-24] MEDS ORDERED: ANUSOL HC CREAM 30GM TOP PRN (23:30)
[2017-04-24] MEDS ORDERED: DIBUCAINE 1% OINTMENT 30GM TOP PRN (23:30)
[2017-04-24] MEDS ORDERED: PROMETHAZINE 25 MG TAB PO PRN (23:30)
[2017-04-25] MEDS: IBUPROFEN 600 MG TAB PO PRN ×4 (01:04→20:21)
[2017-04-25 02:19] VITALS: BP 114/58
[2017-04-25 06:32] VITALS: BP 121/63
[2017-04-25] MEDS ORDERED: INFLUENZA QUADRIVALENT PF VACCINE 0.5ML SYRINGE (90686) IM ONE (09:00)
[2017-04-25] MEDS: PRENATAL VITAMINS CHEWABLE TABLET PO SCH (09:09)
[2017-04-25] MEDS: ACETAMINOPHEN TAB 650MG DOSE (2X325MG) PO PRN ×2 (09:09→15:37)
[2017-04-25 17:59] VITALS: BP 116/78
[2017-04-26] MEDS: ACETAMINOPHEN TAB 650MG DOSE (2X325MG) PO PRN (00:16)
[2017-04-26] MEDS: IBUPROFEN 600 MG TAB PO PRN (06:07)
[2017-04-26 06:33] VITALS: BP 118/76
[2017-04-26] MEDS: PRENATAL VITAMINS CHEWABLE TABLET PO SCH (08:11)
[2017-04-26] MEDS ORDERED: IBUP-1114 PO (08:46)
[2017-04-26] MEDS ORDERED: ACET50TA PO (08:46)
[2017-04-26] MEDS ORDERED: INFLUENZA QUADRIVALENT PF VACCINE 0.5ML SYRINGE (90686) IM ONE (13:30)
== END 2017-04-26 14:07 | disposition home or self-care (01) | DRG 775 ==
LOC: M LDO 08:45 → M LDI 09:32 → M OBS 04-25 01:54
PROVIDERS: ADMIT Obstetrics & Gynecology; ATTEND Obstetrics & Gynecology
PROC: 10E0XZZ Delivery of Products of Conception, External Approach (ICD-10-PCS; principal; 2017-04-24)
PROC: 0KQM0ZZ Repair Perineum Muscle, Open Approach (ICD-10-PCS; 2017-04-24)
PROC: 3E033VJ Introduction of Other Hormone into Peripheral Vein, Percutaneous Approach (ICD-10-PCS; 2017-04-24)
DX: O48.0 Post-term pregnancy (principal); Z3A.40 40 weeks gestation of pregnancy; O70.1 Second degree perineal laceration during delivery; O77.0 Labor and delivery complicated by meconium in amniotic fluid; O76 Abnormality in fetal heart rate and rhythm complicating labor and delivery; Z37.0 Single live birth